=== PATIENT | female | born 2000 | race Caucasian/White ===

== ENCOUNTER 2025-02-19 18:49 | Outpatient (CLI) | payer OTHER, SELFPAY ==
[2025-02-19] VITALS (13 sets, daily range): BP systolic 105–134; BP diastolic 61–82; PULSE 83–120; RESP 17; TEMP 36.2; O2SAT 100; BMI 24.7
[2025-02-19 19:48] LABS: Basophils % 0.2 %; Eosinophils % 0.2 %; Hematocrit 30.6 % (36-47); Lymphocytes # 0.5 10^3/uL (0.8-4.8); Lymphocytes % 2.8 %; Mean Corpuscular Hemoglobin 30.3 pg (27-33); Mean Corpuscular Volume 89.2 fl (85-98); Mean Platelet Volume 9.4 fL (7.4-10.4); Monocytes # 0.3 10^3/uL (0.2-0.9); Monocytes % 1.6 %; Neutrophils # 16.42 10^3/uL (1.8-7.7); Neutrophils % 94.1 %; Nucleated Red Blood Cells % 0 %; Platelet Count 213 10^3/cmm (157-399); Red Blood Count 3.43 10^6/uL (3.85-5.65); Red Cell Distribution Width 11.9 % (12.1-15.1); White Blood Count 17.45 10^3/uL (3.29-11.43)
[2025-02-19 19:48] LABS: Bilirubin Urine Negative (Negative); Blood Urine 2+ (Negative); Glucose Urine UA Negative (Normal); Ketones Urine Negative (Negative); Leukocyte Esterase Urine 3+ (Negative); Nitrate Urine Positive (Negative); Protein Urine 2+ (Negative); Specific Gravity, Urine 1.011 (1.005-1.030); Urine Appearance Turbid (CLEAR); Urine Color Yellow (Yellow); Urobilinogen Urine 0.2 mg/dL (Negative); pH Urine 5.5 (5-7)
[2025-02-19 19:53] LABS: Bacteria Urine 4+ /hpf; Hyaline Casts Urine 22.09 /lpf; RBC Urine 0-2 /hpf (0-2); Squamous Epithelial Cell Urine 0-5 /hpf (0-5); WBC Urine >100 /hpf (0-5)
[2025-02-19 20:08] LABS: Alanine Aminotransferase 11 U/L (0-33); Albumin Level 3.3 g/dL (3.5-5.2); Alkaline Phosphatase 81 U/L (35-105); Anion Gap 17.6 (5-19); Aspartate Amino Transferase 17 U/L (0-32); Blood Urea Nitrogen 9 mg/dL (6-20); Calcium 8.4 mg/dL (8.5-10.5); Carbon Dioxide 19 mmol/L (22-29); Chloride 100 mmol/L (98-107); Globulin 2.9 g/dL (1.3-4.6); Glomerular Filtration Rate 104.6 mL/min (90-130); Glucose 136 mg/dL (65-115); Osmolality Calculated 277 mOsm/kg (285-295); Potassium 3.6 mmol/L (3.5-5.1); Sodium 133 mmol/L (136-145); Total Bilirubin 0.3 mg/dL (0.15-1.2); Total Protein 6.2 g/dL (6.6-8.7)
[2025-02-19 20:16] LABS: Add Urine Culture? Yes; UA Slide Review UA Slide Review Perf
[2025-02-19] MEDS: cefTRIAXone 1,000 MG, lidocaine 1% 2.1 ML in SYRINGE 1 EACH 2.1 MG IM (22:02)
== END 2025-02-19 22:32 | disposition home or self-care (01) ==
LOC: OPOB 18:49 → OBGYN 18:51
PROVIDERS: PCP Family Medicine; Visit Provider Family Medicine
DX: O26.899 Other specified pregnancy related conditions, unspecified trimester (principal); Z3A.00 Weeks of gestation of pregnancy not specified; R42 Dizziness and giddiness
CPT/HCPCS: 36415; 80053; 81001; 85025; 87086; 99211; J0696; J9999

== ENCOUNTER 2025-05-21 08:00 | Outpatient (CLI) | payer OTHER, SELFPAY ==
--- NOTE | 2025-05-21 08:27 | ANES.PREANE2 ---
Pre-Anesthetic Assessment Height/Weight: Height 5 ft 3 in Preop Diagnosis: IUP Was Beta Melanie taken within 24 hours: N/A Was Clonidine taken within 24 hours: N/A Social No alcohol and No tobacco Exam alert, oriented x 3, clear to auscultation bilaterally and regular rate & rhythm Airway Submandibular: within normal limits Cervical ROM: within normal limits Mallampati: Class II Dentition: full Anesthetic Plan ASA status: 2 Anesthesia: Regional (specify below) Other: G1, P0 here for epidural consult Denies any issues with Denies any cardiac or pulmonary issues Patient states that she wants to try to go naturally but will have epidural if needed Will obtain labs when patient comes in active labor If patient decides, plan on routine epidural placement Medications/Allergies Home Medications ?Medication ?Instructions ?Recorded ?Confirmed ?Last Taken ?Type vit no.95-ferrous 1 tab PO DAILY 02/19/25 02/19/25 Unknown History fumarate 28 mg-folic acid 800 mcg tablet () Allergies Allergy/AdvReac Type Severity Reaction Status Date / Time No Known Allergies Allergy Verified 02/19/25 21:11
== END 2025-05-21 08:01 ==
LOC: OPOB 06-05 06:52
PROVIDERS: PCP Family Medicine; Visit Provider Family Medicine
DX: Z53.8 Procedure and treatment not carried out for other reasons (principal)

== ENCOUNTER 2025-06-11 07:29 | Inpatient (IN) | payer OTHER, MEDICAID, SELFPAY ==
[2025-06-10] VITALS (7 sets, daily range): BP systolic 118–135; BP diastolic 56–80; PULSE 58–73; RESP 16–18; TEMP 36.6; BMI 29.7
[2025-06-10 20:14] LABS: Hematocrit 30.0 % (36-47); Hemoglobin 9.50 g/dL (11.27-16.99); Mean Corpuscular HGB Conc 31.7 g/dL (30-55); Mean Corpuscular Hemoglobin 25.4 pg (27-33); Mean Corpuscular Volume 80.2 fl (85-98); Nucleated Red Blood Cells % 0 %; Platelet Count 298 10^3/cmm (157-399); Red Blood Count 3.74 10^6/uL (3.85-5.65); White Blood Count 11.54 10^3/uL (3.29-11.43)
[2025-06-10] MEDS: penicillin g potassium 5,000,000 UNIT in sodium chloride 0.9% (plus) 100 ML 100 UNIT IV (20:36)
--- NOTE | 2025-06-10 20:41 | PM.OPHPUD ---
Labor & Delivery H&P Update Date of Procedure: June 10, 2025 Date H&P Performed: 06/04/25 Changes to previous documentation: presenting for induction. Admission Diagnosis: 24 year old 1 at 40 weeks and 3 days. Other information: She has had an unremarkable . She baby has been large for dates. Blood type is B pos. Antibody screen is neg. GBS pos. Glucose screen passed. Rubella immune. Infectious dz profile wnl. Related Problem List Diagnoses 1. 40 weeks gestation of : I anticipate routine induction and vaginal delivery. A&P Assessment and plan 1. 40 weeks gestation of : I anticipate routine induction and vaginal delivery. We did discuss the risks and alternatives to induction prior to being 41-42 weeks. She and her have no further questions and wish to proceed. Status: Acute PDMP PDMP Reviewed: Not Reviewed
[2025-06-11] VITALS (37 sets, daily range): BP systolic 101–156; BP diastolic 56–94; PULSE 50–141; RESP 16–18; TEMP 36.4–36.9
[2025-06-11] MEDS: PENICILLIN G POTASSIUM 2,500,000 UNIT/50 ML BAG 50 UNIT IV ×4 (00:35→12:47)
[2025-06-11] MEDS: fentaNYL 50 mcg/mL INJ 2mL IVP ×4 (03:34→08:09)
[2025-06-11] MEDS: oxytocin 30 UNIT/500 ML BAG 600 UNIT IV (13:26)
[2025-06-11] MEDS: lidocaine 2% INJ 20 mL INJECTION (13:30)
--- NOTE | 2025-06-11 13:56 | P.PCNOB_ITS ---
Delivery Note: Date of delivery: June 11, 2025 Pre-delivery diagnoses: 24-year-old 1 at 40 weeks estima zohaib gestational age presenting to the hospital for induction Post-delivery diagnoses: Status post spontaneous vaginal delivery Procedure: Spontaneous vaginal delivery Delivering Physician: Gilberto Mejía Estimated blood loss (mL): 150 Pre-Delivery Course: The patient presented to the hospital for induction at 40 weeks and 3 days. Cytotec 25 mcg was placed. She had spontaneous rupture membranes. She progressed to complete without difficulty. Delivery: DELIVERY: The patient progressed to complete without difficulty. The baby progressed to the point of over several contractions. Unfortunately the baby's heart tones began dropping into the 60s and 70s lasting for over 5 minutes. As result a posterior midline episiotomy was performed. The baby's head was then easily delivered. She delivered a male with a weight of 8 pounds 3 ounces with Apgars of 7, 9. The baby was delivered from the FRIEDA position and placed on the mother's abdomen. The baby appeared somewhat stunned, and as result the cord was then clamped and cut immediately so the baby could be taken the warmer for further care.. There was a nuchal cord x 2 which were reduced prior to delivering the head. There was no meconium. The placenta and 3 vessel cord were delivered intact shortly thereafter. The perineum and vaginal vault were carefully examined. A second-degree posterior midline laceration was noted corresponding to the episiotomy. It was repaired in usual fashion using 2-0 Vicryl. Both the mother and the baby were in stable condition. Post-Delivery Status: Good History History History 1 Term 1 Miscarriages/Ectopic Living Children 1 A&P Assessment and plan 1. Vaginal delivery: I anticipate routine care. PDMP PDMP Reviewed: Not Reviewed Coding Level of Care Code Acute Code for Chg Fwd Diagnoses Vaginal delivery O80
[2025-06-11] MEDS: benzocaine-menthol 78 gm Canister 1 SPRAY TOPICAL (15:19)
[2025-06-12 04:00] VITALS: BP 120/69; PULSE 69; RESP 16; TEMP 36.8
[2025-06-12] MEDS: HYDROcodone-acetaminophen 5-325 mg Tablet PO (05:16)
[2025-06-12 05:25] LABS: Hematocrit 24.0 % (36-47); Hemoglobin 7.50 g/dL (11.27-16.99); Mean Corpuscular HGB Conc 31.3 g/dL (30-55); Mean Corpuscular Hemoglobin 25.3 pg (27-33); Mean Corpuscular Volume 81.1 fl (85-98); Platelet Count 245 10^3/cmm (157-399); Red Blood Count 2.96 10^6/uL (3.85-5.65); White Blood Count 19.71 10^3/uL (3.29-11.43)
--- NOTE | 2025-06-12 07:58 | P.DS_ITS ---
Discharge Providers SENIOR CONTRACT SPECIALIST Date of Admission: 06/11/25 07:29 Date of Discharge: 06/12/25 Attending Provider at Admission: Gilberto Mejía MD Attending Provider at Discharge: Gilberto Mejía MD Primary Care Provider: Gilberto Mejía MD Diagnoses at Discharge Discharge Diagnosis 1. Vaginal delivery: Reason for Visit Reason for Visit: IOL Hospital Course Hospital Course The patient presented to the hospital for an elective induction at 40 weeks and 3 days. She was placed on Cytotec 25 mcg. She had spontaneous rupture of membranes. She progressed to complete. An episiotomy was performed due to bradycardia. The baby delivery was otherwise unremarkable. The patient had second-degree tear which was repaired with 2-0 Vicryl. Her course was unremarkable. She pumped and breast-fed. Her pain was well- controlled. Her bleeding was within normal limits. There were no concerns. Information Peripartum Data: Delivery Method: Operative Vaginal Physical Exam Narrative: The patient is alert. She appears comfortable. Her heart has a regular rate and rhythm with no murmurs appreciated. Lungs are clear to auscultation bilaterally. Her fundus is firm and below the umbilicus. History History History 1 Term 1 Miscarriages/Ectopic Living Children 1 Discharge Data Studies Completed and Pending Laboratory Results WBC 19.71 10^3/uL (3.29-11.43) H 06/12/25 04:50 RBC 2.96 10^6/uL (3.85-5.65) L 06/12/25 04:50 Hgb 7.50 g/dL (11.27-16.99) L 06/12/25 04:50 Hct 24.0 % (36-47) L 06/12/25 04:50 MCV 81.1 fl (85-98) L 06/12/25 04:50 MCH 25.3 pg (27-33) L 06/12/25 04:50 MCHC 31.3 g/dL (30-55) 06/12/25 04:50 RDW 13.7 % (12.1-15.1) 06/12/25 04:50 Plt Count 245 10^3/cmm (157-399) 06/12/25 04:50 MPV 10.7 fL (7.4-10.4) H 06/12/25 04:50 Neut % (Auto) 76.1 % 06/10/25 19:45 Lymph % (Auto) 16.3 % 06/10/25 19:45 Williams % (Auto) 5.8 % 06/10/25 19:45 Eos % (Auto) 0.7 % 06/10/25 19:45 Baso % (Auto) 0.4 % 06/10/25 19:45 Neut # (Auto) 8.78 10^3/uL (1.8-7.7) H 06/10/25 19:45 Lymph # (Auto) 1.9 10^3/uL (0.8-4.8) 06/10/25 19:45 Williams # (Auto) 0.7 10^3/uL (0.2-0.9) 06/10/25 19:45 Eos # (Auto) 0.1 10^3/uL (0.0-0.8) 06/10/25 19:45 Baso # (Auto) 0.1 10^3/uL (0.0-0.1) 06/10/25 19:45 Nucleated RBC % (auto) 0 % 06/10/25 19:45 Nucleated RBCs # 0.0 /100WBC 06/10/25 19:45 Blood Type B Positive 06/10/25 19:45 Rho(D) Type Rh positive 06/10/25 19:45 Antibody Screen Negative 06/10/25 19:45 Vitals Last Vital Signs Temp 98.2 F 06/12/25 04:00 Pulse 69 06/12/25 04:00 Resp 16 06/12/25 04:00 BP 120/69 06/12/25 04:00 O2 Del Method Room Air 06/10/25 20:01 Results Labs OB ([facility]): Blood Type B Positive 06/10/25 Antibody Screen Negative 06/10/25 Hct, (36-47) 24.0 % L Today Hgb, (11.27-16.99) 7.50 g/dL L Today Rho(D) Type Rh positive 06/10/25 Plt Count, (157-399) 245 10^3/cmm Today Micro Urine Specimen 02/19/25 Discharge Plan Discharge Patient Disposition: Home Condition: Stable Prescriptions: New ibuprofen 800 mg Tablet 800 mg PO TID Qty: 45 0RF Continued PNV no.95-ferrous fumarate-FA [] 28 mg iron- 800 mcg Tablet 1 tab PO DAILY Discharge Order = DC NOW: Discharge Order (Routine); Ordered 06/12/25 Ordered By: Gilberto Mejía Referrals: Gilberto Mejía MD [Primary Care Provider, [facility]] - 06/19/25 1:20 pm Discharge Diet: Usual diet Discharge Activity: Limit activity as instructed Patient Instructions: Depression (DC), Opioid Safety (DC), Preeclampsia and Eclampsia After Delivery (GEN), Hemorrhage (DC), OB Discharge Report, OB Food/Drug Interaction Guide, OB Care at Home, Opioid Safety, OB Vaginal Deliveries, Patient Portal & Ines Instructions, Abnormal Bleeding Discharge Attestations S[employer]IOR [employer] SPECIALIST Time Spent in Discharge Care*: less than 30 min Coding Level of Care Code Acute Code for Chg Fwd Diagnoses Vaginal delivery O80
[2025-06-12] MEDS: PRENATAL VIT NO.130/IRON/FOLIC 1 EACH TABLET PO (08:52)
[2025-06-12 10:20] VITALS: BP 125/65; PULSE 70; RESP 16; TEMP 36.8; O2SAT 99
[2025-06-12 17:00] VITALS: BP 109/70; PULSE 78; RESP 16; TEMP 36.8; O2SAT 98
== END 2025-06-12 17:00 | disposition home or self-care (01) | DRG 807 ==
LOC: OPOB 10:13
PROVIDERS: Admitting Provider Family Medicine; PCP Family Medicine; Visit Provider Family Medicine
DX: O48.0 Post-term pregnancy (principal); Z37.0 Single live birth; O70.1 Second degree perineal laceration during delivery; Z3A.40 40 weeks gestation of pregnancy
CPT/HCPCS: 36415; 59025; 85025; 85027; 86850; 86900; 96374; 96376; 99211; J2540; J2590; J3010; J7121; J9999